=== PATIENT | male | born 1960 | race Caucasian/White ===

== ENCOUNTER 2021-05-02 18:55 | Emergency (ER) | payer SELFPAY ==
--- NOTE | 2021-05-02 19:57 | EDM.PDOC ---
ED HPI GENERAL MEDICAL PROBLEM - General Chief Complaint: Cardiovascular Problem Stated Complaint: POSS BLOOD CLOT Time Seen by Provider: 05/02/21 19:21 Source of Information: Reports: Patient, RN Notes Reviewed History Limitations: Reports: No Limitations - History of Present Illness INITIAL COMMENTS - FREE TEXT/NARRATIVE: Patient is a 60-year-old male presenting to the emergency department with complaints of pain to his right arm, right hip, right groin, and right leg. Reports symptoms are mild, but he is concerned that he may have a blood clot. Patient reports he first notices symptoms of pain in his right arm after he got his first Pfizer Covid injection back in November. After the second injection, he feels like his symptoms worsened. Over the last month or so, he has been having right hip pain and over the last week pain is present somewhat in his right groin as well. Reports intermittent in his right lower leg. He has had no chest pain or shortness of breath. Denies any history of blood clots. 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 [No Known Home Meds] 05/02/21 [History] ED ROS GENERAL - Review of Systems Review Of Systems: Comprehensive ROS is negative, except as noted in HPI. ED EXAM, GENERAL - Physical Exam Exam: See Below Exam Limited By: No Limitations General Appearance: Alert, WD/WN, No Apparent Distress Respiratory/Chest: No Respiratory Distress, Lungs Clear, Normal Breath Sounds, No Accessory Muscle Use, Chest Non-Tender Cardiovascular: Normal Peripheral Pulses, Regular Rate, Rhythm, No Edema, No Gallop, No JVD, No Murmur, No Rub Extremities: Other (Mild tenderness to palpation over the right SI joint and right lateral hip. No redness or warmth.) Neurological: Alert, Oriented, CN II-XII Intact, Normal Cognition, Normal Gait, Normal Reflexes, No Motor/Sensory Deficits Psychiatric: Normal Affect, Normal Mood Skin Exam: Warm, Dry, Intact, Normal Color, No Rash Course - Vital Signs Last Recorded V/S: Last Vital Signs Temp 97.1 F 05/02/21 19:28 Pulse 68 05/02/21 19:28 Resp 16 05/02/21 19:28 BP 152/90 H 05/02/21 19:28 Pulse Ox 99 05/02/21 19:28 - Orders/Labs/Meds Labs: Laboratory Tests 05/02/21 05/02/21 05/02/21 Range/Units 19:55 19:55 19:55 WBC 9.53 H (4.23-9.07) K/mm3 RBC 5.15 (4.63-6.08) M/mm3 Hgb 15.7 (13.7-17.5) gm/dl Hct 46.1 (40.1-51.0) % MCV 89.5 (79.0-92.2) fl MCH 30.5 (25.7-32.2) pg MCHC 34.1 (32.2-35.5) g/dl RDW Std Deviation 44.2 H (35.1-43.9) fL Plt Count 295 (163-337) K/mm3 MPV 9.2 L (9.4-12.3) fl Neut % (Auto) 57.3 (34.0-67.9) % Lymph % (Auto) 26.1 (21.8-53.1) % Casey % (Auto) 10.4 (5.3-12.2) % Eos % (Auto) 5.2 (0.8-7.0) Baso % (Auto) 0.5 (0.1-1.2) % Neut # (Auto) 5.45 H (1.78-5.38) K/mm3 Lymph # (Auto) 2.49 (1.32-3.57) K/mm3 Casey # (Auto) 0.99 H (0.30-0.82) K/mm3 Eos # (Auto) 0.50 (0.04-0.54) K/mm3 Baso # (Auto) 0.05 (0.01-0.08) K/mm3 D-Dimer, Quantitative 0.25 (0.19-0.50) mg/L Sodium 140 (136-145) mEq/L Potassium 4.0 (3.5-5.1) mEq/L Chloride 105 (98-107) mEq/L Carbon Dioxide 26 (21-32) mEq/L Anion Gap 13.0 (5-15) BUN 14 (7-18) mg/dL Creatinine 0.9 (0.7-1.3) mg/dL Est Cr Clr Drug Dosing 84.44 mL/min Estimated GFR (MDRD) > 60 (>60) mL/min BUN/Creatinine Ratio 15.6 (14-18) Glucose 91 (70-99) mg/dL Calcium 8.3 L (8.5-10.1) mg/dL Total Bilirubin 0.4 (0.2-1.0) mg/dL AST 34 (15-37) U/L ALT 66 H (16-63) U/L Alkaline Phosphatase 63 (46-116) U/L C-Reactive Protein <0.2 (<1.0) mg/dL Total Protein 7.2 (6.4-8.2) g/dl Albumin 3.8 (3.4-5.0) g/dl Globulin 3.4 gm/dL Albumin/Globulin Ratio 1.1 (1-2) - Re-Assessments/Exams Free Text/Narrative Re-Assessment/Exam: 05/02/21 20:38 Hematology is grossly unremarkable. D-dimer is normal at 0.25. Discussed x-ray of the right hip with the patient and he declined. States he will monitor it and follow-up in the clinic as needed. Discharge instructions as documented. Departure - Departure Time of Disposition: 20:38 Disposition: Home, Self-Care 01 Condition: Good Clinical Impression: Hip pain, Arm pain Instructions: Hip Pain Referrals: Radha Harp PA-C [Primary Care Provider] - Forms: ED Department Discharge Additional Instructions: You were seen in the emergency department for pain in your right arm, right hip, right leg, and right groin with concerns of a possible blood clot. Blood work was completed and found to be normal. The pain you are experiencing is likely musculoskeletal in nature. X-rays were offered but declined at this time. Recommend that you continue to monitor your symptoms. If symptoms do not improve, recommend follow-up in the clinic with your primary care provider. Should you experience any new or worsening symptoms of concern, please do not hesitate to return to the emergency department for reevaluation. Sepsis Event Note (ED) - Evaluation Sepsis Screening Result: No Definite Risk
== END 2021-05-02 20:45 | disposition home or self-care (01) ==
LOC: JD.ED 18:55
DX: M25.551 Pain in right hip (principal); M79.601 Pain in right arm
CPT/HCPCS: 36415; 80053; 85025; 85379; 86140; 99283